=== PATIENT | female | born 1960 | race Caucasian/White ===

== ENCOUNTER 2018-06-21 12:54 | Emergency (ER) | payer BC, OTHER ==
--- NOTE | 2018-06-21 13:59 | ED ---
Back Pain - HPI Summary HPI Summary: This patient is a 57 year old F presenting to [facility] accompanied by her with a chief complaint of left upper back pain since 20:00 1 day ago. The patient reports that the pain worsened and was accompanied by SOB since this morning. The patient notes that the pain radiated to her left shoulder. The patient describes the pain as a pressure. The patient rates the pain 8/10 in severity. She reports the pain has improved since arrival to [facility]. Symptoms aggravated by nothing. Symptoms alleviated by nothing. - History of Current Complaint Chief Complaint: EDBackInjuryPain Stated Complaint: BACK PAIN Time Seen by Provider: 06/21/18 13:50 Hx Obtained From: Patient Onset/Duration: Gradual Onset, Lasting Days - 1 day, Still Present, Worse Since - this morning Onset/Duration: Started Days Ago, Atraumatic, Still Present Timing: Constant Back Pain Location: Is Discrete @ - left upper back, Radiates To - left shoulder Severity Initially: Mild Severity Currently: Moderate Pain Intensity: 8 Pain Scale Used: 0-10 Numeric Character: Dull - pressure Aggravating Symptom(s): Nothing Alleviating Symptom(s): Nothing Associated Signs And Symptoms: Positive: Other - SOB - Allergies/Home Medications Allergies/Adverse Reactions: Allergies Allergy/AdvReac Type Severity Reaction Status Date / Time magnesium sulfate Allergy Hives/Diff. Verified 06/21/18 14:03 Breathing/I tching Home Medications: Home Medications Latanoprost 0.005%* [Xalatan 0.005%*] 1 drop BOTH EYES QAM 06/21/18 [History Confirmed 06/21/18] Olopatadine HCl 1 drop BOTH EYES DAILY PRN 06/21/18 [History Confirmed 06/21/18] Timolol Maleate 1 drop BOTH EYES BID 06/21/18 [History Confirmed 06/21/18] PMH/Surg Hx/FS Hx/Imm Hx Musculoskeletal History: Denies: Hx Back Problems Opthamlomology History: Denies: Hx Legally Blind EENT History: Denies: Hx Deafness - Cancer History Hx Chemotherapy: Yes - for colon cancer 01/15 Hx Radiation Therapy: No - Surgical History Surgery Procedure, Year, and Place: none Infectious Disease History: No Infectious Disease History: Denies: Traveled Outside the [place] in Last 30 Days - Family History Known Family History: Negative: Blood Disorder - Social History Lives: With Family Review of Systems Negative: Fever Negative: Epistaxis Negative: Chest Pain Positive: Shortness Of Breath Musculoskeletal: Other - left upper back pain, left shoulder pain All Other Systems Reviewed And Are Negative: Yes Physical Exam - Summary Physical Exam Summary: VITAL SIGNS: Reviewed. GENERAL: Patient is a well-developed and nourished FEMALE who is lying comfortable in the stretcher. Patient is not in any acute respiratory distress. HEAD AND FACE: No signs of trauma. No ecchymosis, hematomas or skull depressions. No sinus tenderness. EYES: PERRLA, EOMI x 2, No injected conjunctiva, no nystagmus. EARS: Hearing grossly intact. Ear canals and tympanic membranes are within normal limits. MOUTH: Oropharynx within normal limits. NECK: Supple, trachea is midline, no adenopathy, no JVD, no carotid bruit, no c- spine tenderness, neck with full ROM. CHEST: Symmetric, no tenderness at palpation LUNGS: Clear to auscultation bilaterally. No wheezing or crackles. CVS: Regular rate and rhythm, S1 and S2 present, no murmurs or gallops appreciated. ABDOMEN: Soft. No signs of distention. No rebound no guarding, and no masses palpated. Bowel sounds are normal. Left paraspinal muscle tenderness in t-spine EXTREMITIES: FROM in all major joints, no edema, no cyanosis or clubbing. NEURO: Alert and oriented x 3. No acute neurological deficits. Speech is normal and follows commands. SKIN: Dry and warm Triage Information Reviewed: Yes Vital Signs On Initial Exam: Initial Vitals Temp Pulse Resp BP Pulse Ox 97.3 F 80 18 175/107 98 06/21/18 12:57 06/21/18 12:57 06/21/18 12:57 06/21/18 12:57 06/21/18 12:57 Vital Signs Reviewed: Yes Diagnostics - Vital Signs Vital Signs Temp Pulse Resp BP Pulse Ox 06/21/18 12:57 97.3 F 80 18 175/107 98 - Laboratory Lab Statement: Any lab studies that have been ordered have been reviewed, and results considered in the medical decision making process. - Radiology T-Spine XR Radiology Interpretation Completed By: Radiologist Summary of Radiographic Findings: Unremarkable radiograph of thoracic spine. Dr. Thomas has reviewed this report. - EKG 14:04 Cardiac Rate: NL - at 76 bpm EKG Rhythm: Sinus Rhythm ST Segment: Normal Ectopy: None Summary of EKG Findings: Sinus rhythm at [address] elevation and nml axis. Back Pain Course/Dx - Course Assessment/Plan: Patient is a 57-year-old female who presents to the emergency department with chief complaint of upper back pain with radiation to the left shoulder. Patient reports that she started having the pain last night however today when she did some heavy lifting the pain increased. EKG shows a normal sinus rhythm with no ST elevations. T-spine x-ray impression: Unremarkable x- ray of the thoracic spine. In the ED course the patients pain has almost resolved therefore she did not require any pain medications. Therefore the patient was discharged home with follow-up with PCP. I discussed all the findings and test results with the patient. Patient was instructed to return to the emergency room immediately if any of the symptoms return or worsen. Plan of care was discussed with the patient and she understands and agrees. All questions were answered to patient satisfaction. There were no further complaints or concerns. Lung exam before discharge: CTA B/L. Good air exchange. No wheezing or crackles heard. CVS: S1 and S2 present. No murmurs appreciated. Patient is alert and oriented x 3. Patient is hemodynamically stable. Patient will be discharged home with follow up PCP in the next 2-3 days - Diagnoses Differential Diagnosis/HQI/PQRI: Positive: Herniated Disc, Strain, Sprain Provider Diagnoses: Upper back pain Discharge - Sign-Out/Discharge Documenting (check all that apply): Patient Departure - discharge home Patient Received Moderate/Deep Sedation with Procedure: No - Discharge Plan Condition: Stable Disposition: HOME Patient Education Materials: Back Pain (ED) Referrals: Corbin Reyes MD [Primary Care Provider] - 2 Days Additional Instructions: Follow up with your primary care physician in 2-3 days. Return to the emergency department with any new or worsening symptoms. - Billing Disposition and Condition Condition: STABLE Disposition: Home - Attestation Statements Document Initiated by Scribe: Yes Documenting Scribe: Radha Boss Provider For Whom Shaheenibe is Documenting (Include Credential): Tung Thomas MD Scribe Attestation: Radha Garrison, scribed for Tung Thomas MD on 06/21/18 at 2006. Scribe Documentation Reviewed: Yes Provider Attestation: The documentation as recorded by the scribe, Radha Boss accurately reflects the service I personally performed and the decisions made by me, Tung Thomas MD Status of Scribe Document: Viewed
[2018-06-21 15:19] VITALS: BP 143/107
== END 2018-06-21 15:30 | disposition home or self-care (01) ==
LOC: ED 12:54
DX: M54.6 Pain in thoracic spine (principal); M25.512 Pain in left shoulder; R06.02 Shortness of breath; Z88.8 Allergy status to other drugs, medicaments and biological substances
CPT/HCPCS: 72070; 93005; 99282